=== PATIENT | male | born 1940 | race Caucasian/White ===

== ENCOUNTER 2019-01-17 13:02 | Emergency (ER) | payer MEDICARE, OTHER ==
[~2019-01-17] VITALS: Ht 172.7 cm; Wt 86.2 kg
[~2019-01-17 13:02] MED LIST: DIPH25TA82 PO; FNST5T PO; MELA5CAP PO; MULT-608 PO; TMSL.4C PO; [UNRECOGNIZED DRUG - CODE] PO
[2019-01-17] MEDS ORDERED: morphine INJ 10 MG/ML 1ML (SYR OR VIAL) IM STA (13:23)
[2019-01-17] MEDS ORDERED: ONDANSETRON 4 MG (ZOFRAN) ORAL DISSOLVE TAB PO STA (13:24)
--- NOTE | 2019-01-17 13:52 | ED Lower Extremity ---
General Chief Complaint: Lower Extremity Stated Complaint: RT HIP/THIGH & BACK PAIN Nursing Triage Note: Patient c/o pain in left thigh/hip/leg. States it started 3 weeks ago and has progressed since then. Nursing Sepsis Screen: No Definite Risk Source: patient History of Present Illness Date Seen by Provider: January 17, 2019 Time Seen by Provider: 13:15 Initial Comments Patient is 78-year-old male with history of chronic back pain who presents with persistent right lumbar paravertebral pack pain for the past 3 weeks with increased pain severity over the past 24 hours. Pain radiates to right box. It is described as sharp is not worse with palpation or movement. It is similar to previous chronic back pain. Patient states his previously been treated with successfully with epidural steroid injection. Contact his PCP today but was unable to drive to [place] to see amount of pain. Denies chest pain, abdominal pain, nausea, vomiting, diarrhea, urinary frequency urgency or dysuria. Lower extremity weakness or loss of sensation. Denies trauma. Onset: other (to 3 weeks ago) Method of Injury: unknown Modifying Factors: Improves With Movement, Improves With Pain Medication, Improves With Rest Allergies and Home Medications Allergies Coded Allergies: No Known Drug Allergies (Unverified , 02/23/11) Home Medications Acetaminophen 160 Mg Tab.chew, 160 MG PO BID, (Reported) Diphenhydramine Hcl 25 Mg Tablet, 1 EACH PO HS, (Reported) Finasteride 5 Mg Tab, 5 MG PO DAILY, (Reported) Melatonin 5 Mg Capsule, 5 MG PO HS, (Reported) Multivitamins 1 Tab Tablet, 1 TAB PO DAILY, (Reported) Tamsulosin Hcl 0.4 Mg Cap, 0.5 MG PO DAILY, (Reported) Patient Home Medication List Home Medication List Reviewed: Yes Review of Systems Constitutional: no symptoms reported EENTM: no symptoms reported Respiratory: no symptoms reported Cardiovascular: no symptoms reported Gastrointestinal: no symptoms reported Psychiatric/Neurological: No Symptoms Reported Past Zhjtznx-Wrmcia-Scryjk Hx Past Med/Social Hx: Reviewed Nursing Past Med/Soc Hx Patient Social History Recent Foreign Travel: No Contact w/Someone Who Travel: No Recent Infectious Disease Expo: No Physical Abuse: No Sexual Abuse: No Mistreated: No Fear: No Past Medical History Reproductive Disorders: No Physical Exam Vital Signs Vital Signs - First Documented 01/17/19 13:08 Temp 96.6 Pulse 76 Resp 20 B/P (MAP) 160/95 (116) Pulse Ox 98 O2 Delivery Room Air Capillary Refill : Less Than 3 Seconds Height, Weight, BMI Height: 5'8.00" Weight: 190lbs. oz. 86.743665sd; BMI Method:Stated General Appearance: WD/WN, no apparent distress, moderate distress (moderate discomfort secondary to pain) HEENT: normal ENT inspection Neck: non-tender, full range of motion Cardiovascular: normal peripheral pulses, regular rate, rhythm Respiratory: chest non-tender, lungs clear, normal breath sounds Gastrointestinal: normal bowel sounds, non tender, soft, no pulsatile mass Back: no vertebral tenderness, other (right lower lumbar paravertebral muscle pain, tenderness to palpation reproducing symptoms.) Hips: bilateral hip non-tender, bilateral hip normal inspection Legs: bilateral leg non-tender, bilateral leg normal inspection Knees: bilateral knee non-tender, bilateral knee normal inspection Ankles: bilateral ankle non-tender, bilateral ankle normal inspection Reflexes: 2+ knee (R), 2+ knee (L) Neurologic/Tendon: normal sensation, normal motor functions, normal tendon functions Neurologic/Psychiatric: no motor/sensory deficits Progress/Results/Core Measures Results/Orders My Orders Orders - MARY AVILA DO Morphine Injection (Morphine Injection (01/17/19 13:23) Ondansetron Oral Dissolve Tab (Zofran (01/17/19 13:24) Vital Signs/I&O 01/17/19 13:08 Temp 96.6 Pulse 76 Resp 20 B/P (MAP) 160/95 (116) Pulse Ox 98 O2 Delivery Room Air Blood Pressure Mean: 116 Departure Communication (Admissions) Patient with acute exacerbation of back pain without neurologic deficits. Ddx includes but it is not limited to kidney stone, dissection, retrocecal appendicitis, disc herniation, diverticulitis, metastatic disease, etc. Additional workup in the emergency department offered and recommended to evaluate for emergent medical conditions. Patient verbalizes understanding of risks and potential misdiagnosis declines additional workup. He states his primary check of his pain medication until he can make his doctor's appointment early next week. Patient is very comfortable that his current symptoms are similar to previous episodes of spousal skeletal back pain. He understands that should he change his mind regarding additional workup or if his symptoms worsen , he should return immediately to the emergency department. Patient verbalizes understanding and agreement discharge instructions prior to departure. Impression Primary Impression: Acute low back pain Disposition: HOME, SELF-CARE Condition: Improved Departure-Patient Inst. Referrals: SHYANNE KING MD (PCP/Family) Primary Care Physician Patient Instructions: Low Back Pain (DC) Add. Discharge Instructions: You were treated in the emergency for acute low back pain. The cause your symptoms has not been determined. Please take pain medication muscle boxers as determined. If your symptoms worsen or if you change your mind regarding additional workup in the emergency department, return to the emergency department. All discharge instructions reviewed with patient and/or family. Voiced understanding. Scripts Cyclobenzaprine HCl (Cyclobenzaprine HCl) 5 Mg Tablet 5 MG PO Q8H, #21 TAB Prov: MARY AVILA DO 01/17/19 Hydrocodone/Acetaminophen ([place] 5-325 Tablet) 1 Each Tablet 1 TAB PO Q4-6HR for Pain MDD 10 TABS for 7 Days, #20 TAB Prov: MARY AVILA DO 01/17/19 MARY AVILA DO January 17, 2019 13:52
[2019-01-17] MEDS ORDERED: HYDR-4226 PO (14:05)
[2019-01-17] MEDS ORDERED: CYCL5TAB PO (14:05)
[2019-01-17 14:17] VITALS: BP 138/69
== END 2019-01-17 14:17 | disposition home or self-care (01) ==
LOC: EDUNIT# 13:02 → ER FS 13:04
DX: M54.5 Low back pain (principal)

== ENCOUNTER 2020-10-06 19:25 | Emergency (ER) | payer MEDICARE, OTHER ==
[~2020-10-06 19:25] MED LIST changes: +CYCL5TAB PO; +HYDR-4226 PO
[2020-10-06] MEDS ORDERED: MECLIZINE 25 MG (ANTIVERT) TAB ONE (19:37)
--- NOTE | 2020-10-06 19:38 | ED General ---
General Stated Complaint: VOMITING,DIZZY Source of Information: Patient Exam Limitations: No Limitations History of Present Illness Date Seen by Provider: Oct 06, 2020 Time Seen by Provider: 19:33 Initial Comments 79-year-old male presents via EMS with 3 hours of dizziness. Patient states he was changing oil on his car and was feeling fine, but then he bent forward and stood back up and suddenly felt very dizzy and nauseated. He went indoors and as he turned his head the dizziness was worse and he vomited several times. He felt better when he laid down the symptoms would wane, but with any sitting up, standing up or turning his head to the side his symptoms would get worse. Patient denies history of similar symptoms in the past. Denies history of stroke or TIA. Denies any associated weakness, numbness or paresthesia. Denies speech difficulty or swallowing difficulty. Allergies and Home Medications Allergies Coded Allergies: No Known Drug Allergies (Unverified , 02/23/11) Home Medications Acetaminophen 160 Mg Tab.chew, 160 MG PO BID, (Reported) Cyclobenzaprine HCl 5 Mg Tablet, 5 MG PO Q8H Prescribed by: MARY AVILA on 01/17/19 140 Diphenhydramine Hcl 25 Mg Tablet, 1 EACH PO HS, (Reported) Finasteride 5 Mg Tab, 5 MG PO DAILY, (Reported) Hydrocodone/Acetaminophen 1 Each Tablet, 1 TAB PO Q4-6HR Prescribed by: MARY AVILA on 01/17/19 140 Meclizine HCl 25 Mg Tablet, 25 MG PO Q8H Prescribed by: ABEL VALVERDE on 10/06/202009 Melatonin 5 Mg Capsule, 5 MG PO HS, (Reported) Multivitamins 1 Tab Tablet, 1 TAB PO DAILY, (Reported) Tamsulosin Hcl 0.4 Mg Cap, 0.5 MG PO DAILY, (Reported) Patient Home Medication List Home Medication List Reviewed: Yes Review of Systems Review of Systems Constitutional: No fever; malaise; No weakness EENTM: no symptoms reported; No ear discharge, No hearing loss, No ear pain, No blurred vision, No double vision, No eye pain, No vision loss, No nose congestion, No throat pain, No throat swelling Respiratory: No cough, No short of breath Cardiovascular: No chest pain, No edema, No palpitations, No syncope Gastrointestinal: No abdominal pain, No constipation, No diarrhea, No loss of appetite; nausea, vomiting Psychiatric/Neurological: See HPI; Denies Headache, Denies Numbness, Denies Paresthesia, Denies Pre-Existing Deficit, Denies Seizure, Denies Tingling, Denies Tremors, Denies Weakness Past Hzvsexz-Ogjnop-Iqyzdh Hx Past Med/Social Hx: Reviewed Nursing Past Med/Soc Hx Patient Social History 2nd Hand Smoke Exposure: No Recent Hopitalizations: No Seasonal Allergies Seasonal Allergies: No Past Medical History Surgeries: Yes (Back Surgery) Bladder Surgery, Orthopedic Cardiac: No Neurological: No Reproductive Disorders: No Sexually Transmitted Disease: No Genitourinary: Yes Benign Prostatic Hyperpl Gastrointestinal: Yes (HEARTBURN) Musculoskeletal: Yes Chronic Back Pain Endocrine: No HEENT: No Cancer: No Psychosocial: No Integumentary: No Blood Disorders: No Physical Exam Vital Signs Vital Signs - First Documented 10/06/20 19:30 Temp 36.2 Pulse 74 Resp 16 B/P (MAP) 152/84 (106) Pulse Ox 99 O2 Delivery Room Air Capillary Refill : Height, Weight, BMI Height: 5'8.00" Weight: 190lbs. oz. 86.296246vw; BMI Method:Stated General Appearance: No Apparent Distress, WD/WN Eyes: Bilateral Eye Normal Inspection, Bilateral Eye PERRL, Bilateral Eye EOMI HEENT: PERRL/EOMI, TMs Normal, Normal ENT Inspection, Pharynx Normal Neck: Non Tender, Supple Respiratory: Chest Non Tender, Lungs Clear, Normal Breath Sounds, No Accessory Muscle Use, No Respiratory Distress Cardiovascular: Regular Rate, Rhythm, No Edema, No JVD, Normal Peripheral Pulses Gastrointestinal: Normal Bowel Sounds, Non Tender, Soft Back: Normal Inspection, No CVA Tenderness Extremity: Normal Capillary Refill, Normal Inspection, Normal Range of Motion, Non Tender Neurologic/Psychiatric: Alert, Oriented x3, No Motor/Sensory Deficits, Normal Mood/Affect, qa software tester II-XII Norm as Tested Skin: Normal Color, Warm/Dry Comments no dizziness lying on bed, but when turning head or moving eyes to one side he gets dizzy. Progress/Results/Core Measures Suspected Sepsis SIRS Temperature: Pulse: Respiratory Rate: Blood Pressure / Mean: Results/Orders My Orders Orders - ABEL VALVERDE DO Meclizine Tablet (Antivert Tablet) (10/06/20 19:45) Meclizine Tablet (Antivert Tablet) (10/06/20 19:37) Medications Given in ED Current Medications Medications Dose Ordered Sig/Ana Paula Route Start Time Stop Time Status Last Admin Dose Admin Meclizine HCl 25 mg ONCE ONCE PO 10/06/20 19:45 10/06/20 19:46 DC 10/06/20 19:41 25 MG Vital Signs/I&O 10/06/20 19:30 Temp 36.2 Pulse 74 Resp 16 B/P (MAP) 152/84 (106) Pulse Ox 99 O2 Delivery Room Air Capillary Refill : Progress Note : Progress Note 2009- given Meclizine and already having some improvement of dizziness. Still not when remaining still, but slight w head turning. 2048- Much improved, sitting up now and able to turn head fully side to side without significant dizziness and no nausea. discussed doing Abdirizak's maneuvers at home and f/u if not improving or worse. Departure Impression Primary Impression: Vertigo Disposition: HOME, SELF-CARE Condition: Improved Departure-Patient Inst. Decision time for Depature: 20:50 Referrals: SHYANNE PEÑALOZA MD (PCP/Family) Primary Care Physician Patient Instructions: Vertigo (a Type of Dizziness) (DC) Add. Discharge Instructions: Follow up with Dr Peñaloza next week if your dizziness has not resolved....ER sooner if worse and the medication is not helping. Scripts Meclizine HCl (Meclizine HCl) 25 Mg Tablet 25 MG PO Q8H for Dizziness, #20 TAB Prov: ABEL VALVERDE DO 10/06/20 ABEL VALVERDE DO Oct 06, 2020 19:38
[2020-10-06] MEDS ORDERED: MECLIZINE 25 MG (ANTIVERT) TAB PO ONE (19:45)
[2020-10-06] MEDS ORDERED: MECL-149 PO (20:10)
[2020-10-06 20:58] VITALS: BP 158/77
== END 2020-10-06 21:03 | disposition home or self-care (01) ==
LOC: EDUNIT# 19:25 → ER FS 19:27
DX: R42 Dizziness and giddiness (principal); G89.29 Other chronic pain; M54.9 Dorsalgia, unspecified; N40.0 Benign prostatic hyperplasia without lower urinary tract symptoms; Z79.891 Long term (current) use of opiate analgesic
CPT/HCPCS: 99283

== ENCOUNTER 2021-06-07 12:48 | Emergency (ER) | payer MEDICARE, OTHER ==
[~2021-06-07] VITALS: Ht 172 cm; Wt 89.4 kg
[2021-06-07 12:48] VITALS: BP 158/102
[~2021-06-07 12:48] MED LIST changes: +MECL-149 PO
[2021-06-07] MEDS ORDERED: TETANUS & DIPHTHERIA TOX,ADULT 0.5 ML (TENIVAC) IM ONE (13:00)
[2021-06-07] MEDS ORDERED: BUPIVACAINE 0.5% 30 ML (SENSORCAINE) VIAL INJ ONE (13:00)
[2021-06-07] MEDS ORDERED: BACITRACIN OINTMENT 28 GM TUBE ONE (13:03)
--- NOTE | 2021-06-07 13:04 | ED Integumentary General ---
General Stated Complaint: LT THUMB LAC Source: patient Exam Limitations: no limitations History of Present Illness Date Seen by Provider: Jun 07, 2021 Time Seen by Provider: 12:58 Initial Comments -year-old male presents with injury to right hand great some while using an electric saw. Tetanus is not up-to-date, denies any other injury Allergies and Home Medications Allergies Coded Allergies: No Known Drug Allergies (Unverified , 02/23/11) Patient Home Medication List Home Medication List Reviewed: Yes Acetaminophen (Acetaminophen) 160 Mg Tab.chew, 160 MG PO BID, (Reported) Entered as Reported by: JONAS ZAPATA on 02/21/11 1253 Amoxicillin (Amoxicillin) 500 Mg Capsule, 500 MG PO TID Prescribed by: ABEL VALVERDE on 06/07/21 1316 Bacitracin/Polymyxin B Sulfate (Polysporin Ointment) 28.3 Gm Oint...g., 28.3 GM TP DAILY Prescribed by: ABEL VALVERDE on 06/07/21 1316 Cyclobenzaprine HCl (Cyclobenzaprine HCl) 5 Mg Tablet, 5 MG PO Q8H Prescribed by: MARY AVILA on 01/17/19 1405 Diphenhydramine Hcl (Diphenhydramine 25 Mg) 25 Mg Tablet, 1 EACH PO HS, (Reported) Entered as Reported by: JONAS ZAPATA on 02/21/11 1253 Finasteride (Proscar) 5 Mg Tab, 5 MG PO DAILY, (Reported) Entered as Reported by: JONAS ZAPATA on 02/21/11 1253 Hydrocodone/Acetaminophen (Hydrocodone/Acetaminophen 5 MG/325 MG TAB) 1 Each Tablet, 1 TAB PO Q4-6HR Prescribed by: MARY AVILA on 01/17/19 1405 Hydrocodone/Acetaminophen (Hydrocodone-Acetamin 5-325 mg) 1 Each Tablet, 1 EACH PO Q4H Prescribed by: ABEL VALVERDE on 06/07/21 1317 Meclizine HCl (Meclizine HCl) 25 Mg Tablet, 25 MG PO Q8H Prescribed by: ABEL VALVERDE on 10/06/202009 Melatonin (Melatonin) 5 Mg Capsule, 5 MG PO HS, (Reported) Entered as Reported by: JONAS ZAPATA on 02/21/11 1253 Multivitamins (Multiple Vitamin) 1 Tab Tablet, 1 TAB PO DAILY, (Reported) Entered as Reported by: JONAS ZAPATA on 02/21/11 1253 Tamsulosin Hcl (Flomax) 0.4 Mg Cap, 0.5 MG PO DAILY, (Reported) Entered as Reported by: JONAS ZAPATA on 02/21/11 1253 Review of Systems Review of Systems Constitutional: No fever, No malaise, No weakness Musculoskeletal: see HPI, other (R thumb pain/ injury) Skin: see HPI, other Psychiatric/Neurological: Denies Numbness, Denies Weakness Past Vndmyif-Toxako-Tpgryu Hx Patient Social History Tobacco Use?: No Seasonal Allergies Seasonal Allergies: No Past Medical History Surgeries: Yes (Back Surgery) Bladder Surgery, Orthopedic Respiratory: No Cardiac: No Neurological: No Reproductive Disorders: No Sexually Transmitted Disease: No Genitourinary: Yes Benign Prostatic Hyperpl Gastrointestinal: Yes (HEARTBURN) Musculoskeletal: Yes Chronic Back Pain Endocrine: No HEENT: No Cancer: No Psychosocial: No Integumentary: No Blood Disorders: No Physical Exam Vital Signs Vital Signs - First Documented 06/07/21 12:48 Temp 36.4 Pulse 89 Resp 16 B/P (MAP) 158/102 (120) Pulse Ox 97 O2 Delivery Room Air Capillary Refill : General Appearance: WD/WN, no apparent distress Extremities: normal range of motion, normal capillary refill Skin: normal color, warm/dry, other (large skin avulsion R thumb distal tip phalynx, partial nail involvement. no bony exposure) Procedures/Interventions Wound Location: Upper Extremities Anesthesia: 0.5% Sensorcaine (digital block R thumb) Progress/Results/Core Measures Results/Orders My Orders Orders - ABEL VALVERDE DO Bupivacaine 0.5% Injection (Sensorcaine (06/07/21 13:00) Tetanus/Diphtheria Inj (Adult) (Tenivac (06/07/21 13:00) Bacitracin Ointment (Bacitracin Ointment (06/07/21 21:00) Bacitracin Ointment (Bacitracin Ointment (06/07/21 13:03) Medications Given in ED Current Medications Medications Dose Ordered Sig/Ana Paula Route Start Time Stop Time Status Last Admin Dose Admin Bupivacaine HCl 30 ml ONCE ONCE INJ 06/07/21 13:00 06/07/21 13:01 DC 06/07/21 13:10 30 ML Tetanus/ Diphtheria Toxoids 0.5 ml ONCE ONCE IM 06/07/21 13:00 06/07/21 13:01 DC 06/07/21 13:08 0.5 ML Vital Signs/I&O 06/07/21 12:48 Temp 36.4 Pulse 89 Resp 16 B/P (MAP) 158/102 (120) Pulse Ox 97 O2 Delivery Room Air Departure Impression Primary Impression: Avulsion of skin of thumb Qualified Codes: S61.001A - Unspecified open wound of right thumb without damage to nail, initial encounter Disposition: HOME, SELF-CARE Condition: Stable Departure-Patient Inst. Decision time for Depature: 13:01 Referrals: SHYANNE KING MD (PCP/Family) Primary Care Physician Patient Instructions: SKIN AVULSION Add. Discharge Instructions: Follow up with Dr King for a wound care check in 5 to 7 days Scripts Amoxicillin (Amoxicillin) 500 Mg Capsule 500 MG PO TID, #15 CAP 0 Refills Prov: ABEL VALVERDE DO 06/07/21 Bacitracin/Polymyxin B Sulfate (Polysporin Ointment) 28.3 Gm Oint...g. 28.3 GM TP DAILY, #30 TUBE Prov: ABEL VALVERDE DO 06/07/21 Hydrocodone/Acetaminophen (Hydrocodone-Acetamin 5-325 mg) 1 Each Tablet 1 EACH PO Q4H for Abdominal Pain, #10 TAB Prov: ABEL VALVERDE DO 06/07/21 ABEL VALVERDE DO Jun 07, 2021 13:04
[2021-06-07] MEDS ORDERED: BACI28.35 TP (13:16)
[2021-06-07] MEDS ORDERED: ACHD5005 PO (13:16)
[2021-06-07] MEDS ORDERED: AMOX500C2 PO (13:16)
[2021-06-07] MEDS ORDERED: BACITRACIN OINTMENT 28 GM TUBE TOP SCH (21:00)
== END 2021-06-07 13:41 | disposition home or self-care (01) ==
LOC: EDUNIT# 12:48 → ER FS 12:49
DX: S61.001A Unspecified open wound of right thumb without damage to nail, initial encounter (principal); N40.0 Benign prostatic hyperplasia without lower urinary tract symptoms; G89.29 Other chronic pain; M54.9 Dorsalgia, unspecified; Z79.891 Long term (current) use of opiate analgesic; Z79.899 Other long term (current) drug therapy; W31.2XXA Contact with powered woodworking and forming machines, initial encounter
CPT/HCPCS: 64450; 90471; 90714